=== PATIENT | female | born 1980 | race Caucasian/White ===

== ENCOUNTER 2023-01-03 16:48 | Observation (INO) ==
--- NOTE | 2023-01-03 20:53 | EKG ---
Test Reason : CHEST PAIN Blood Pressure : */* mmHG Vent. Rate : 58 BPM Atrial Rate : 58 BPM P-R Int : 154 ms QRS Dur : 82 ms QT Int : 434 ms P-R-T Axes : * 150 147 degrees QTc Int : 426 ms Limb lead reversal Sinus bradycardia Right axis deviation Nonspecific ST and T wave abnormality Abnormal ECG Confirmed by Parish Stoner ([id number]) on 01/04/2023 3:34:58 PM Referred By: Confirmed By: Parish Stoner
[2023-01-03 21:12] LABS: BASOPHILS % (AUTO) 0.3 % (0.2-1.0); EOSINOPHILS # (AUTO) 0.2 x10^3/uL (0.0-0.2); EOSINOPHILS % (AUTO) 1.8 % (0.9-2.9); HEMATOCRIT 39.8 % (36.0-47.0); HEMOGLOBIN 13.4 g/dL (12.0-16.0); LYMPHOCYTES # (AUTO) 2.8 X10^3/uL (1.3-2.9); MEAN CORPUSCULAR HEMOGLOBIN 28.5 pg (27.0-34.0); MEAN CORPUSCULAR HGB CONC 33.8 g/dL (33.0-35.0); MEAN CORPUSCULAR VOLUME 84.4 fL (80.0-100.0); MEAN PLATELET VOLUME 8.4 fL (7.4-11.0); MONOCYTES # (AUTO) 0.6 x10^3/uL (0.3-0.8); NEUTROPHILS # (AUTO) 8.4 x10^3/uL (2.2-4.8); NEUTROPHILS % (AUTO) 69.9 % (42.0-75.0); RED BLOOD COUNT 4.72 X10^6/uL (3.5-5.4); RED CELL DISTRIBUTION WIDTH 13.1 % (11.6-16.5)
[2023-01-03 21:19] LABS: INR 1.06 (0.8-1.3)
[2023-01-03 21:37] LABS: ALANINE AMINOTRANSFERASE 16 Units/L (12-78); ALBUMIN 3.8 g/dL (3.4-5.0); ALKALINE PHOSPHATASE 47 Units/L (46-116); ASPARTATE AMINO TRANSFERASE 12 Units/L (15-37); BLOOD UREA NITROGEN 16 mg/dL (7-18); CALCIUM 9.1 mg/dL (8.5-10.1); CARBON DIOXIDE 30.5 mmol/L (21-32); CHLORIDE 103 mmol/L (98-107); CREATINE KINASE 144 Units/L (26-192); CREATININE 0.69 mg/dL (0.55-1.02); FREE T4 (FREE THYROXINE) 1.01 ng/dL (0.76-1.46); SODIUM 141 mmol/L (136-145); TOTAL PROTEIN 7.3 g/dL (6.4-8.2); TSH (3RD GENERATION) 0.871 uIU/mL (0.358-3.74); eGFR NON BLACK RACES > 60 (>60)
[2023-01-03] MEDS: NS 1,000 ML IV 1,000 ML IV SCH (23:07)
[2023-01-03 23:24] VITALS: BMI 29.2
--- NOTE | 2023-01-04 00:32 | EKG ---
Test Reason : CHEST PAIN Blood Pressure : */* mmHG Vent. Rate : 79 BPM Atrial Rate : 79 BPM P-R Int : 164 ms QRS Dur : 90 ms QT Int : 394 ms P-R-T Axes : 61 35 29 degrees QTc Int : 451 ms Normal sinus rhythm Normal ECG Confirmed by Parish Stoner ([id number]) on 01/04/2023 3:33:48 PM Referred By: Confirmed By: Parish Stoner
[2023-01-04 00:54] LABS: BILIRUBIN,URINE NEGATIVE (NEGATIVE); BLOOD/HEMOGLOBIN,URINE NEGATIVE (NEGATIVE); GLUCOSE, URINE NEGATIVE (NEGATIVE); KETONES,URINE 1+ (NEGATIVE); LEUKOCYTE ESTERASE ,URINE NEGATIVE (NEGATIVE); NITRITES,URINE NEGATIVE (NEGATIVE); PH,URINE 6.5 (5.0 - 8.0); PROTEIN,URINE NEGATIVE (NEGATIVE); UROBILINOGEN,URINE NORMAL (NORMAL)
[2023-01-04 01:09] LABS: APPEARANCE,URINE CLEAR (CLEAR); COLOR,URINE STRAW (YELLOW)
[2023-01-04 01:36] LABS: CREATINE KINASE 121 Units/L (26-192)
--- NOTE | 2023-01-04 05:03 | EKG ---
Test Reason : CHEST PAIN Blood Pressure : */* mmHG Vent. Rate : 68 BPM Atrial Rate : 68 BPM P-R Int : 154 ms QRS Dur : 86 ms QT Int : 410 ms P-R-T Axes : 48 30 27 degrees QTc Int : 435 ms Normal sinus rhythm Normal ECG Confirmed by Parish Stoner ([id number]) on 01/04/2023 3:32:32 PM Referred By: Confirmed By: Parish Stoner
[2023-01-04 06:16] LABS: BASOPHILS % (AUTO) 0.2 % (0.2-1.0); EOSINOPHILS # (AUTO) 0.2 x10^3/uL (0.0-0.2); EOSINOPHILS % (AUTO) 2.2 % (0.9-2.9); HEMATOCRIT 40.2 % (36.0-47.0); HEMOGLOBIN 13.6 g/dL (12.0-16.0); LYMPHOCYTES # (AUTO) 2.4 X10^3/uL (1.3-2.9); LYMPHOCYTES % (AUTO) 25.4 % (21.0-51.0); MEAN CORPUSCULAR HEMOGLOBIN 28.3 pg (27.0-34.0); MEAN CORPUSCULAR HGB CONC 33.8 g/dL (33.0-35.0); MEAN CORPUSCULAR VOLUME 83.7 fL (80.0-100.0); MEAN PLATELET VOLUME 8.9 fL (7.4-11.0); MONOCYTES # (AUTO) 0.6 x10^3/uL (0.3-0.8); MONOCYTES % (AUTO) 6.5 % (0.0-13.0); NEUTROPHILS # (AUTO) 6.3 x10^3/uL (2.2-4.8); NEUTROPHILS % (AUTO) 65.7 % (42.0-75.0); RED CELL DISTRIBUTION WIDTH 12.8 % (11.6-16.5); WHITE BLOOD COUNT 9.6 X10^3/uL (3.6-10.0)
[2023-01-04 06:29] LABS: ALANINE AMINOTRANSFERASE 15 Units/L (12-78); ALBUMIN 3.4 g/dL (3.4-5.0); ALKALINE PHOSPHATASE 47 Units/L (46-116); ASPARTATE AMINO TRANSFERASE 15 Units/L (15-37); BLOOD UREA NITROGEN 13 mg/dL (7-18); CALCIUM 8.5 mg/dL (8.5-10.1); CARBON DIOXIDE 27.5 mmol/L (21-32); CHLORIDE 107 mmol/L (98-107); CHOL/HDL RATIO 3.4 (0.0-5.0); CHOLESTEROL 169 mg/dL (0-200); CREATINE KINASE 105 Units/L (26-192); CREATININE 0.69 mg/dL (0.55-1.02); HDL CHOLESTEROL 49 mg/dL (40-60); SODIUM 142 mmol/L (136-145); TOTAL PROTEIN 6.7 g/dL (6.4-8.2); TRIGLYCERIDES 55 mg/dL (0-150); eGFR NON BLACK RACES > 60 (>60)
--- NOTE | 2023-01-04 07:15 | RAD ---
HISTORYCHEST PAINSTUDYCHEST, 1 VIEWCOMPARISONNoneTECHNIQUEPA or AP view of the chestFINDINGSThe cardiac and mediastinal contours are within normal limits. The lungs are clear without focal consolidation or segmental collapse. No pleural effusion or pneumothorax.IMPRESSIONNo acute pulmonary process.Electronically signed by: Lamine Wynne (Jan 04, 2023 07:13:56)
[2023-01-04] MEDS: NS 1,000 ML IV 1,000 ML IV SCH (10:05)
--- NOTE | 2023-01-04 11:31 | DR.UPDATE ---
H&P Update Prescription drug monitoring program results: PDMP reviewed and no concerns identified H&P Reviewed: Yes Any changes to H&P?: Yes Changes noted:: PATIENT WAS ADMITTED TO THE HOSPITAL FOR FURTHER EVALUATION AND TREATMNET OF CHEST PAIN, RULE OUT ACUTE NE. SHE DESCRIBES PAIN PRESSURE-LIKE AND DULL. IT IS LOCATED MID STERNUM AND IN THE EPIGASTRIC AREA. PAIN HAS BEEN INTERMITTENT SINCE 12/23/22. SHE RATED PAIN A 3/10 ON ADMISSION. PATIENT REPORTS A STRONG FAMILY HISTORY OF HEART DISEASE, HTN, AND DM II. HER FATHER IS NO LONGER LIVING DUE TO A NE. SHE REPORTS A PERSONAL HISTORY OF POLYCYSTIC OVARIAN SYNDROME AND CHRONIC CONSTIPATION. SHE HAS A SURGICAL HISTORY OF CHOLECYSTECTOMY, HYSTERECTOMY, TONSILLECTOMY, AND ADENOIDECTOMY. ON ARRIVAL TO THE HOSPITAL, VITALS WERE: 98.2-68-18-99%-114/72. LABS WERE OBTAINED. WBC 12.0, RBC 4.72, HGB 13.4, HCT 39.8, PLT COUNT 225, PT 13.5, INR 1.06, PTT 34.0, D- DIMER <0.27, SODIUM 141, POTASSIUM 3.6, CHLORIDE 103, BUN 16, CREATININE 0.69, GLUCOSE 82, CALCIUM 9.1, AST 12, ALT 16, ALK PHOS 47, CREATINE KINASE 144, TOTAL PROTEIN 7.3, ALBUMIN 3.8, B12 817, FREE T4 1.01, TSH 0.871, TRIGLYCERIDES 55, CHOLESTEROL 169, LDL 109, HDL 49. REPEAT CARDIAC ENZYMES AND EKGS WERE NORMAL. URINALYSIS WAS OBTAINED AND WAS UNREMARKABLE. A CHEST XRAY WAS OBTAINED AND REVEALED: The cardiac and mediastinal contours are within normal limits. The lungs are clear without focal consolidation or segmental collapse. No pleural effusion or pneumothorax. EKG WAS OBTAINED AND REVEALED: SINUS BRADYCARDIA WITH HR 58. SHE WAS STARTED ON ECOTRIN 325MG PO DAILY, COLACE 100MG PO DAILY, PEPCID 40MG IV BID, PEPCID 20MG IV Q12H, AND GI COCKTAIL 15ML PO QID. WE PLAN TO OBTAIN AN ECHOCARDIOGRAM. WE WILL CONSULT WITH , [employer] [facility]. OTHERWISE, WE PLAN TO FOLLOW-UP WITH AM LABS AND CONTINUE TO MONITOR. TIME SPENT ON CLINICAL ASSESSMENT, REVIWING LABS AND IMAGING, DECISION MAKING, AND DOCUMENTATION GREATER THAN 75 MINUTES. Patient was examined?: Yes
[2023-01-04] MEDS: PEPCID 20 MG VIAL 20 MG in NS 50 ML IV 50 ML IV SCH ×2 (12:30→21:29)
[2023-01-04] MEDS: COLACE CAP 100 MG PO SCH (13:00)
[2023-01-04] MEDS: ECOTRIN TAB 325 MG PO SCH (13:00)
[2023-01-04] MEDS: PROTONIX INJ 40 MG VIAL IVP SCH ×2 (13:00→21:29)
[2023-01-04] MEDS: LEVSIN/MAALOX/LIDOC VISC PO SCH ×3 (14:46→21:29)
[2023-01-05] MEDS: NS 1,000 ML IV 1,000 ML IV SCH ×2 (01:01→11:02)
[2023-01-05 06:49] LABS: BASOPHILS % (AUTO) 0.2 % (0.2-1.0); EOSINOPHILS # (AUTO) 0.2 x10^3/uL (0.0-0.2); EOSINOPHILS % (AUTO) 2.1 % (0.9-2.9); HEMATOCRIT 38.6 % (36.0-47.0); LYMPHOCYTES # (AUTO) 2.4 X10^3/uL (1.3-2.9); LYMPHOCYTES % (AUTO) 28.7 % (21.0-51.0); MEAN CORPUSCULAR HEMOGLOBIN 28.1 pg (27.0-34.0); MEAN CORPUSCULAR HGB CONC 33.6 g/dL (33.0-35.0); MEAN CORPUSCULAR VOLUME 83.8 fL (80.0-100.0); MEAN PLATELET VOLUME 9.3 fL (7.4-11.0); MONOCYTES # (AUTO) 0.5 x10^3/uL (0.3-0.8); MONOCYTES % (AUTO) 5.6 % (0.0-13.0); NEUTROPHILS # (AUTO) 5.4 x10^3/uL (2.2-4.8); NEUTROPHILS % (AUTO) 63.4 % (42.0-75.0); RED CELL DISTRIBUTION WIDTH 12.8 % (11.6-16.5); WHITE BLOOD COUNT 8.5 X10^3/uL (3.6-10.0)
[2023-01-05 07:07] LABS: ALANINE AMINOTRANSFERASE 14 Units/L (12-78); ALBUMIN 3.2 g/dL (3.4-5.0); ALKALINE PHOSPHATASE 41 Units/L (46-116); ASPARTATE AMINO TRANSFERASE 13 Units/L (15-37); BLOOD UREA NITROGEN 9 mg/dL (7-18); CALCIUM 8.5 mg/dL (8.5-10.1); CARBON DIOXIDE 30.1 mmol/L (21-32); CHLORIDE 109 mmol/L (98-107); COR CA(FOR HYPOALB) 9.1 mg/dL (8.5-10.1); CREATININE 0.66 mg/dL (0.55-1.02); SODIUM 144 mmol/L (136-145); TOTAL PROTEIN 6.3 g/dL (6.4-8.2); eGFR NON BLACK RACES > 60 (>60)
[2023-01-05] MEDS: PROTONIX INJ 40 MG VIAL IVP SCH (09:01)
[2023-01-05] MEDS: ECOTRIN TAB 325 MG PO SCH (09:02)
[2023-01-05] MEDS: PEPCID 20 MG VIAL 20 MG in NS 50 ML IV 50 ML IV SCH (09:02)
[2023-01-05] MEDS: COLACE CAP 100 MG PO SCH (09:03)
[2023-01-05] MEDS: LEVSIN/MAALOX/LIDOC VISC PO SCH ×2 (09:03→13:08)
[2023-01-05 09:47] VITALS: BP 109/66
== END 2023-01-05 14:04 | disposition home or self-care (01) ==
LOC: MED/SURG
PROVIDERS: ADMIT Internal Medicine; ATTEND Internal Medicine
DX: R00.2 Palpitations; R07.89 Other chest pain; Z82.49 Family history of ischemic heart disease and other diseases of the circulatory system; K59.09 Other constipation; Z90.49 Acquired absence of other specified parts of digestive tract